=== PATIENT | female | born 1985 | race Caucasian/White ===

== ENCOUNTER 2019-09-11 09:45 | Inpatient (IN) | payer BC ==
[2019-09-11 10:23] LABS: APPEARANCE,URINE TURBID; BILIRUBIN,URINE NEGATIVE (NEGATIVE); COLOR,URINE YELLOW; GLUCOSE, URINE NEGATIVE (NEGATIVE); KETONES,URINE NEGATIVE (NEGATIVE); LEUKOCYTE ESTERASE,URINE SMALL (NEGATIVE); NITRITE,URINE NEGATIVE (NEGATIVE); PROTEIN,URINE 100 mg/dL (NEGATIVE); URINE SPECIFIC GRAVITY 1.006; UROBILINOGEN,URINE NEGATIVE mg/dL (<2.0)
[2019-09-11] MEDS ORDERED: RINGERS SOLUTION,LACTATED 1,000 ML IV PRN (10:26)
[2019-09-11] MEDS ORDERED: OXYTOCIN 10 UNIT/ML VIAL ONE (10:30)
[2019-09-11] MEDS ORDERED: OXYTOCIN/NORMAL SALINE 20 UNIT/1,000 ML RTUINJ ONE (10:30)
[2019-09-11] MEDS ORDERED: LIDOCAINE 1% INJ-PF (10 MG/ML) 30 ML SDV ONE (10:30)
[2019-09-11] MEDS ORDERED: MISOPROSTOL 0.2 MG TABLET ONE (10:30)
[2019-09-11 10:43] LABS: URINE AMPHETAMINES SCREEN NEGATIVE; URINE BARBITURATES SCREEN NEGATIVE; URINE BENZODIAZEPINES SCREEN NEGATIVE; URINE COCAINE SCREEN NEGATIVE; URINE MARIJUANA (THC) SCREEN NEGATIVE; URINE METHADONE SCREEN NEGATIVE; URINE PHENCYCLIDINE SCREEN NEGATIVE
--- NOTE | 2019-09-11 11:01 | Admission Physical ---
Datetime Report Generated by CPN: 09/11/2019 11:00 CURRENT ADMISSION Chief Complaint: Suspected Ruptured Membranes Indication for Induction: Not Applicable Admit Impression : Term, Intrauterine ; Ruptured Membranes Admit Plan: Admit to Unit; Initiate Labor Augmentation Protocol ALLERGIES Medication Allergies: No Medication Allergies: No Known Allergies (09/11/2019) Latex: No Latex Allergies Food Allergies: none Environmental Allergies: none OBSTETRICAL HISTORY EDC: 09/28/2019 00:00 : 2 Para: 1 Term: 1 : 0 SAB: 0 IAB: 0 Ectopic: 0 Livin Cesareans: 0 VBACs: 0 Multiple Births: 0 Gestational Diabetes: No Rh Sensitization: No Incompetent Cervix: No SHALOM: No Infertility: No ART Treatment: No Uterine Anomaly: No IUGR: No Hx Previous C/S: No Macrosomia: No Hx Loss/Stillborn: No PIH: No Hx : No Placenta Previa/Abruption: No Depression/PP Depression: No PTL/PROM: No Post Hemorrhage: No Current Procedures: Ultrasound Obstetrical History Comments: 2013 baby girl 7# G2- current, out of state care SEE RECORDS Alcohol: No Marijuana : No Cocaine: No Other Illicit Drugs: No Cigarettes: Never Smoker. 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 Surgery: No Heart Disease: No Hosp/Surgery: Yes Autoimmune Disorder: No Anesthetic Complications: No Kidney Disease: No Abnormal Pap Smear: No Neuro/Epilepsy: No Psychiatric Disorders: No Other Medical Diseases: No Hepatitis/Liver Disease: No Significant Family History: No Varicosities/Phlebitis: No Trauma/Violence : No Thyroid Dysfunction: No Medical History Comments: childbirth, wisdom teeth removal INFECTIOUS HISTORY Gonorrhea: No Genital Herpes: No Chlamydia: No Tuberculosis: No Syphilis: No Hepatitis: No HIV/AIDS Exposure: No Rash or Viral Illness: No HPV: No PHYSICAL EXAM General: Normal HEENT: Normal Neurologic: Normal Thyroid: Normal Heart: Normal Lungs: Normal Breast: Normal Back: Normal Abdomen: Normal Genitourinary Exam: Normal Extremities: Normal DTRs: Normal Pelvic Type: Adequate Vital Signs: Reviewed; Within Normal Limits VAGINAL EXAM Dilatation: 3 Effacement: 80 Station: -2 MEMBRANES Pooling: Positive Membranes: Ruptured Amniotic Fluid Color: Clear FETUS A EGA: 37.4 Monitoring: External US FHR- Baseline: 150 Variability: Moderate 6-25bpm Accelerations: 15X15 Decelerations: None FHR Category: Category I Estimated Weight (gm): 3400 Presentation: Vertex PLANS FOR LABOR AND DELIVERY Labor and Delivery: None Pain Management: Epidural Feeding Preference: Formula Benefit of Breast Feed Discussed: Yes Circumcision: Yes INFORMED CONSENT Signature: with User ID: Franco
[2019-09-11 11:12] LABS: ABSOLUTE EOSINOPHILS # (AUTO) 0.1 10^3/uL (0.0-0.6); ABSOLUTE LYMPHOCYTES (AUTO) 1.6 10^3/uL (0.5-4.7); ABSOLUTE MONOCYTES (AUTO) 0.8 10^3/uL (0.1-1.4); BASOPHILS % (AUTO) 0.2 % (0-2); EOSINOPHILS % (AUTO) 1.1 % (0-6); HEMATOCRIT 32.3 % (36.0-47.0); HEMOGLOBIN 10.9 g/dL (12.0-15.5); LYMPHOCYTES % (AUTO) 13.9 % (13-45); MEAN CORPUSCULAR HEMOGLOBIN 25.8 pg (27.0-33.4); MEAN CORPUSCULAR HGB CONC 33.8 g/dL (32.0-36.0); MEAN CORPUSCULAR VOLUME 76 fl (80-97); MONOCYTES % (AUTO) 6.7 % (3-13); PLATELET COUNT 200 10^3/uL (150-450); RED BLOOD COUNT 4.23 10^6/uL (3.72-5.28); RED CELL DISTRIBUTION WIDTH 15.5 % (11.5-14.0); SEGMENTED NEUTROPHILS % (AUTO) 78.1 % (42-78); TOTAL CELLS COUNTED % (AUTO) 100 %; WHITE BLOOD COUNT 11.6 10^3/uL (4.0-10.5)
[2019-09-11 13:49] LABS: CHLAM PCR NOT DETECTED (NOT DETECT)
[2019-09-11] MEDS ORDERED: BUPIVACAINE HCL 0.25 % INJ/PF (2.5 MG/1 ML) 30 ML VIAL ONE (13:57)
[2019-09-11] MEDS ORDERED: FENTANYL/BUPIVACAINE/NS/PF 300 MCG/150 ML RTUINJ EPI ONE (13:57)
[2019-09-11] MEDS ORDERED: EPHEDRINE SULFATE INJ 50 MG/1 ML AMPULE ONE (13:57)
[2019-09-11] MEDS ORDERED: OXYTOCIN/NORMAL SALINE 20 UNIT/1,000 ML RTUINJ IV PRN ×2 (16:29→19:14)
[2019-09-11] MEDS ORDERED: BENZOCAINE/MENTHOL AEROSOL SPRAY 56 ML TOP PRN (19:14)
[2019-09-11] MEDS ORDERED: ACETAMINOPHEN 325 MG TABLET PO PRN (19:14)
[2019-09-11] MEDS ORDERED: PSEUDOEPHEDRINE HCL 30 MG TABLET PO PRN (19:14)
[2019-09-11] MEDS ORDERED: GLYCERIN/WITCH HAZEL LEAF 1 EACH MED..WIPE TP PRN (19:14)
[2019-09-11] MEDS ORDERED: MAGNESIUM HYDROXIDE SUSP 30 ML UDCUP PO PRN (19:14)
[2019-09-11] MEDS ORDERED: PROMETHAZINE HCL 25 MG SUPP.RECT PR PRN (19:14)
[2019-09-11] MEDS ORDERED: ACETAMINOPHEN WITH CODEINE #3 TABLET PO PRN ×2 (19:14)
[2019-09-11] MEDS ORDERED: NA PHOS,M-B/NA PHOS,DI-BA (ADULT) 133 ML ENEMA PR PRN (19:14)
[2019-09-11] MEDS ORDERED: DIBUCAINE 1% OINTMENT 28 GM TP PRN (19:14)
[2019-09-11] MEDS ORDERED: PROMETHAZINE HCL INJ 25 MG/1 ML VIAL IV PRN (19:14)
[2019-09-11] MEDS ORDERED: DIPHENHYDRAMINE HCL 25 MG CAPSULE PO PRN (19:14)
[2019-09-11] MEDS ORDERED: DIPH/PERTUSS(ACELL)/TETANUS VAC/PF 0.5 ML SYR (>=10YO) IM PRN (19:14)
[2019-09-11] MEDS ORDERED: PROMETHAZINE HCL 25 MG TABLET PO PRN (19:14)
[2019-09-11] MEDS ORDERED: ACETAMINOPHEN 650 MG SUPP.RECT PR PRN (19:14)
[2019-09-11] MEDS ORDERED: ZOLPIDEM TARTRATE 5 MG TABLET PO PRN (19:14)
[2019-09-11] MEDS ORDERED: MEASLES,MUMPS&RUBELLA VACC/PF 0.5 ML VIAL SUBCUT PRN (19:14)
--- NOTE | 2019-09-11 20:56 | Delivery Summary ---
Del Sum A-C Datetime Report Generated by CPN: 09/11/2019 20:56 DELIVERY PERSONNEL DELIVERY PERSONNEL: [id number] Delivery Doctor:: Tana Mccollum MD Labor and Delivery Nurse:: Samina Sewell RNrnfa Nurse:: Ema Aiken RN Shank Rander/CHUCKING AND BORING MACHINE OPERATOR: Cheri Hewitt, ST Additional Personnel: : Lul Morocho RN MATERNAL INFORMATION Delivery Anesthesia: Epidural Medications After Delivery: Pitocin Drip 20 Units/1000ml NSS Meds After Delivery Comment: pitocin 20 units Delivery QBL: 25 Maternal Complications: None LABOR SUMMARY EDC: 09/28/2019 00:00 No. Babies in Womb: 1 Attempted: No Labor Anesthesia: Epidural LABOR INFORMATION Reason for Induction: Not Applicable Onset of Labor: 09/11/2019 08:03 Complete Dilatation: 09/11/2019 18:27 Oxytocin: N/A Group B Beta Strep: negative Antibiotics # of Doses: n/a Steroids Given: None Reason Steroids Not Administered: Not Applicable MEMBRANES Membranes Rupture Method: Spontaneous Rupture of Membranes: 09/11/2019 08:03 Length of Rupture (hr): 11.03 Amniotic Fluid Color: Clear Amniotic Fluid Amount: Small Amniotic Fluid Odor: Normal STAGES OF LABOR Stage 1 hr: 10 Stage 1 min: 24 Stage 2 hr: 0 Stage 2 min: 38 Stage 3 hr: 0 Stage 3 min: 5 Total Time in Labor hr: 11 Total Time in Labor min: 7 VAGINAL DELIVERY Episiotomy: None Laceration #1: None Laceration Extension #1: N/A Laceration Repair: Not Applicable Sponge Count Correct: Yes Sharps Count Correct: Yes CSECTION DELIVERY Primary Indication: N/A Secondary Indication: N/A CSection Incidence: N/A Labor: N/A Elective: N/A CSection Incision: N/A BABY A INFORMATION Delivery Date/Time: 09/11/2019 19:05 Method of Delivery: Vaginal Nurse Controlled Delivery: No Born in Route : No : N/A Forceps: N/A Vacuum Extraction: N/A Shoulder Dystocia : No PRESENTATION/POSITION BABY A Presentation: Cephalic Cephalic Presentation: Vertex Vertex Position: Left Occipital Anterior Breech Presentation: N/A PLACENTA INFORMATION BABY A Placenta Delivery Time : 09/11/2019 19:10 Placenta Method of Delivery: Spontaneous Placenta Status: Delivered SCORES BABY A Heart Rate 1 min: >100 bpm Resp Effort 1 min: Good Cry Reflex Irritability 1 min: Cough or Sneeze or Pulls Away Muscle Tone 1 min: Active Motion Color 1 min: Body Medulla, Extremities Blue Resuscitation Effort 1 min: Tactile Stimulation SCORE 1 MIN: 9 Heart Rate 5 min: >100 bpm Resp Effort 5 min: Good Cry Reflex Irritability 5 min: Cough or Sneeze or Pulls Away Muscle Tone 5 min: Active Motion Color 5 min: Body Medulla, Extremities Blue Resuscitation Effort 5 min: Tactile Stimulation SCORE 5 MIN: 9 INFORMATION BABY A Gestational Age at Delivery: 37.4 Gestational Status: Early Term- 37- 38.6 Weeks Infant Outcome : Liveborn Condition : Stable Sex: Male IDENTIFICATION BABY A Infant Verification Date/Time: 09/11/2019 19:44 ID Band Number: [id number] Mother's Name Verified: Yes Infant RN Verifying Infant: Jina Aiken, RN and SRobin Houser, RN WEIGHT/LENGTH BABY A Birthweight (gm): 3756 Infant Weight (lb): 8 Infant Weight (oz): 4 Length (in): 21.00 Length (cm): 53.34 CORD INFORMATION BABY A No. Cord Vessels: 3 Nuchal Cord : Around Neck x2, Loose Cord Blood Taken: Yes-For Storage (Mom's Blood type +) Infant Suction: None ASSESSMENT BABY A Complications: None Physical Findings at Delivery: Within Normal Limits Physical Findings- Other: See full nursery physical sciences instructor Respirations: Appears Normal Skin to Skin: Yes Banana Grader/ALS Called : No Care By: Madhavi Morocho RN Transferred To: Remains with Mother BABY B INFORMATION : N/A SIGNATURES Signature: with User ID: Franco
[2019-09-11] MEDS: FAMOTIDINE 20 MG TABLET PO SCH (22:47)
[2019-09-11] MEDS: IBUPROFEN 800 MG TABLET PO SCH (22:47)
[2019-09-12] MEDS: IBUPROFEN 800 MG TABLET PO SCH ×3 (05:24→21:14)
[2019-09-12 06:44] LABS: HEMATOCRIT 28.7 % (36.0-47.0); HEMOGLOBIN 9.7 g/dL (12.0-15.5); MEAN CORPUSCULAR HEMOGLOBIN 25.7 pg (27.0-33.4); MEAN CORPUSCULAR HGB CONC 33.8 g/dL (32.0-36.0); MEAN CORPUSCULAR VOLUME 76 fl (80-97); PLATELET COUNT 171 10^3/uL (150-450); RED BLOOD COUNT 3.77 10^6/uL (3.72-5.28); RED CELL DISTRIBUTION WIDTH 14.8 % (11.5-14.0); WHITE BLOOD COUNT 13.6 10^3/uL (4.0-10.5)
--- NOTE | 2019-09-12 09:27 | PDOC PROGRESS REPORT ---
Subjective-OB Progress Note for:: 09/12/19 Subjective: Pt doing well, no concerns. She reports being here visiting from [facility] when her water broke. Denies clots, heavy bleeding. Reports reg diet and voiding without difficulty. Physical Exam (OB) Vital Signs: Temp Pulse Resp BP Pulse Ox 98.0 F 91 18 120/82 99 09/12/19 08:10 09/12/19 08:10 09/12/19 08:10 09/12/19 08:10 09/12/19 08:10 Intake & Output 09/11/19 09/12/19 09/13/19 06:59 06:59 06:59 Intake Total 900 Balance 900 Weight 101.7 kg - PIH/Pre-Eclampsia DTR's: 1 + Clonus: Negative Headache: Absent Epigastric Pain: No Visual Changes: No - Lochia Lochia Amount: Scant < 10 ml Lochia Color: Rubra/Red - Abdomen Description: Soft, Round Hernia Present: No Fundal Description: Firm, Midline Fundal Height: u/u - u/2 Objective-Diagnostic Laboratory: 09/12/19 06:34 09/11/19 09/11/19 09/11/19 10:00 10:57 10:57 WBC 11.6 H RBC 4.23 Hgb 10.9 L Hct 32.3 L MCV 76 L MCH 25.8 L MCHC 33.8 RDW 15.5 H Plt Count 200 Seg Neutrophils % 78.1 H Urine Color YELLOW Urine Appearance TURBID Urine pH 8.0 Ur Specific [place] 1.006 Urine Protein 100 H Urine Glucose (UA) NEGATIVE Urine Ketones NEGATIVE Urine Blood MODERATE H Urine Nitrite NEGATIVE Ur Leukocyte Esterase SMALL H Blood Type A POSITIVE Antibody Screen NEGATIVE 09/12/19 06:34 WBC 13.6 H RBC 3.77 Hgb 9.7 L Hct 28.7 L MCV 76 L MCH 25.7 L MCHC 33.8 RDW 14.8 H Plt Count 171 Seg Neutrophils % Urine Color Urine Appearance Urine pH Ur Specific [place] Urine Protein Urine Glucose (UA) Urine Ketones Urine Blood Urine Nitrite Ur Leukocyte Esterase Blood Type Antibody Screen Assessment and Plan(PN) - Assessment and Plan (1) (spontaneous vaginal delivery) Is this a current diagnosis for this admission?: Yes - Time Spent with Patient Time with patient: Less than 15 minutes Medications reviewed and adjusted accordingly: Yes - Disposition Anticipated Discharge: Home Within: within 24 hours
[2019-09-12] MEDS: SENNOSIDES/DOCUSATE 8.6-50 MG 1 EACH TABLET PO SCH (09:47)
[2019-09-12] MEDS: DOCUSATE SODIUM 100 MG CAPSULE PO SCH ×2 (09:47→17:47)
[2019-09-12] MEDS: FAMOTIDINE 20 MG TABLET PO SCH ×2 (09:47→21:15)
[2019-09-12] MEDS: FERROUS SULFATE 325 MG TABLET PO SCH ×2 (09:47→17:47)
[2019-09-12] MEDS: PRENATAL VITAMIN W DHA CAPSULE PO SCH (09:47)
[2019-09-12] MEDS ORDERED: DIPH/PERTUSS(ACELL)/TETANUS VAC/PF 0.5 ML SYR (>=10YO) IM PRN (14:30)
[2019-09-12] MEDS ORDERED: MEASLES,MUMPS&RUBELLA VACC/PF 0.5 ML VIAL SUBCUT PRN (14:30)
[2019-09-12] MEDS ORDERED: PROMETHAZINE HCL INJ 25 MG/1 ML VIAL IV PRN (14:30)
[2019-09-13] MEDS: IBUPROFEN 800 MG TABLET PO SCH ×2 (05:20→13:30)
[2019-09-13 05:27] LABS: HEPATITIS C VIRUS AB <0.1 s/co ratio (0.0-0.9)
[2019-09-13 07:44] VITALS: BP 118/71
--- NOTE | 2019-09-13 09:16 | PDOC DISCHARGE SUMMARY ---
Impression - Admit/DC Date/PCP Admission Date/Primary Care Provider: 09/11/19 10:27 MAXX JACKSON MD Discharge Date: 09/13/19 - PP Day#2, doing well, no complaints. A+, Rubella Immune, bottlefeeding. - Additional Information Resuscitation Status: Full Code Discharge Diet: As Tolerated, Regular Discharge Activity: Activity As Tolerated, No Lifting Over 10 Pounds, Pelvic Rest Referrals: MAXX JACKSON MD [Primary Care Provider] - Prescriptions: Ferrous Sulfate [Feosol 325 mg Tablet] 325 mg PO DAILY #30 tablet Ibuprofen [Motrin 800 mg Tablet] 800 mg PO Q8 #60 tablet Home Medications: Vit,Calc76/Iron/Folic [Prenatabs Rx Tablet] 1 tab PO DAILY 09/11/19 Ferrous Sulfate [Feosol 325 mg Tablet] 325 mg PO DAILY #30 tablet 09/13/19 Ibuprofen [Motrin 800 mg Tablet] 800 mg PO Q8 #60 tablet 09/13/19 HPI Reason(s) for Admission: Onset of Labor Intrapartum Procedure(s): Spontaneous Vaginal Delivery Hospital Course Hospital Course: normal Results Laboratory Results: WBC 13.6 10^3/uL (4.0-10.5) H 09/12/19 06:34 RBC 3.77 10^6/uL (3.72-5.28) 09/12/19 06:34 Hgb 9.7 g/dL (12.0-15.5) L 09/12/19 06:34 Hct 28.7 % (36.0-47.0) L 09/12/19 06:34 MCV 76 fl (80-97) L 09/12/19 06:34 MCH 25.7 pg (27.0-33.4) L 09/12/19 06:34 MCHC 33.8 g/dL (32.0-36.0) 09/12/19 06:34 RDW 14.8 % (11.5-14.0) H 09/12/19 06:34 Plt Count 171 10^3/uL (150-450) 09/12/19 06:34 Lymph % (Auto) 13.9 % (13-45) 09/11/19 10:57 [place] % (Auto) 6.7 % (3-13) 09/11/19 10:57 Eos % (Auto) 1.1 % (0-6) 09/11/19 10:57 Baso % (Auto) 0.2 % (0-2) 09/11/19 10:57 Absolute Neuts (auto) 9.0 10^3/uL (1.7-8.2) H 09/11/19 10:57 Absolute Lymphs (auto) 1.6 10^3/uL (0.5-4.7) 09/11/19 10:57 Absolute Monos (auto) 0.8 10^3/uL (0.1-1.4) 09/11/19 10:57 Absolute Eos (auto) 0.1 10^3/uL (0.0-0.6) 09/11/19 10:57 Absolute Basos (auto) 0.0 10^3/uL (0.0-0.2) 09/11/19 10:57 Seg Neutrophils % 78.1 % (42-78) H 09/11/19 10:57 Urine Color YELLOW 09/11/19 10:00 Urine Appearance TURBID 09/11/19 10:00 Urine pH 8.0 (5.0-9.0) 09/11/19 10:00 Ur Specific [place] 1.006 09/11/19 10:00 Urine Protein 100 mg/dL (NEGATIVE) H 09/11/19 10:00 Urine Glucose (UA) NEGATIVE mg/dL (NEGATIVE) 09/11/19 10:00 Urine Ketones NEGATIVE mg/dL (NEGATIVE) 09/11/19 10:00 Urine Blood MODERATE (NEGATIVE) H 09/11/19 10:00 Urine Nitrite NEGATIVE (NEGATIVE) 09/11/19 10:00 Urine Bilirubin NEGATIVE (NEGATIVE) 09/11/19 10:00 Urine Urobilinogen NEGATIVE mg/dL (<2.0) 09/11/19 10:00 Ur Leukocyte Esterase SMALL (NEGATIVE) H 09/11/19 10:00 Urine Ascorbic Acid NEGATIVE (NEGATIVE) 09/11/19 10:00 Membranes Rupture POSITIVE (NEGATIVE) H 09/11/19 09:59 Urine Opiates Screen NEGATIVE 09/11/19 10:00 Urine Methadone Screen NEGATIVE 09/11/19 10:00 Ur Barbiturates Screen NEGATIVE 09/11/19 10:00 Ur Phencyclidine Scrn NEGATIVE 09/11/19 10:00 Ur Amphetamines Screen NEGATIVE 09/11/19 10:00 U Benzodiazepines Scrn NEGATIVE 09/11/19 10:00 Urine Cocaine Screen NEGATIVE 09/11/19 10:00 U Marijuana (THC) Screen NEGATIVE 09/11/19 10:00 RPR NONREACTIVE (NONREACTIVE) 09/11/19 10:57 Chlamydia DNA (PCR) NOT DETECTED (NOT DETECT) 09/11/19 12:05 Hepatitis C (SHAHBAZ) <0.1 s/co ratio (0.0-0.9) 09/11/19 10:57 Hep C Verif Com 1 Comment (.) 09/11/19 10:57 N.gonorrhoeae DNA (PCR) NOT DETECTED (NOT DETECT) 09/11/19 12:05 Blood Type A POSITIVE 09/11/19 10:57 Antibody Screen NEGATIVE 09/11/19 10:57 Plan Plan of Treatment: D/c to home. F/up with Ob care provider in 4-6 weeks Time Spent: Less than 30 Minutes
[2019-09-13] MEDS: PRENATAL VITAMIN W DHA CAPSULE PO SCH (09:20)
[2019-09-13] MEDS: FAMOTIDINE 20 MG TABLET PO SCH (09:21)
[2019-09-13] MEDS: DOCUSATE SODIUM 100 MG CAPSULE PO SCH (09:21)
[2019-09-13] MEDS: SENNOSIDES/DOCUSATE 8.6-50 MG 1 EACH TABLET PO SCH (09:21)
[2019-09-13] MEDS: FERROUS SULFATE 325 MG TABLET PO SCH (09:21)
== END 2019-09-13 14:35 | disposition home or self-care (01) | DRG 807 ==
LOC: LC 09:45 → LR 10:27 → 2S 21:40
PROVIDERS: ADMIT Obstetrics & Gynecology; ATTEND Obstetrics & Gynecology
PROC: 10E0XZZ Delivery of Products of Conception, External Approach (ICD-10-PCS; principal; 2019-09-11)
DX: O69.81X0 Labor and delivery complicated by cord around neck, without compression, not applicable or unspecified (principal); Z37.0 Single live birth; Z28.21 Immunization not carried out because of patient refusal; Z3A.37 37 weeks gestation of pregnancy
CPT/HCPCS: 1967; 36415; 80307; 81005; 84112; 85025; 85027; 86592; 86803; 86804; 86850; 86900; 86901; 87491; 87591; 94760; J2590; J3010; J3490